=== PATIENT | female | born 1970 | race Hispanic/Latino ===

== ENCOUNTER 2018-01-25 12:56 | Emergency (ER) | payer SELFPAY ==
[2018-01-25] MEDS ORDERED: TORADOL IV ONE (16:23)
[2018-01-25] MEDS ORDERED: NACL 0.9% 1000 ML 1,000 ML IV ONE (16:23)
[2018-01-25] MEDS ORDERED: HALDOL IV ONE (16:25)
--- NOTE | 2018-01-25 17:01 | Emergency Department Report ---
Blank Doc - Documentation Documentation: 47-year-old female with past history of headaches that presents to the ER with progressive onset headache and right upper quadrant pain. Headache was constant , throbbing, left-sided. It has been going on for the past 24 hours. She has taken Aleve, and it hasn't helped. Similar to past headaches, not improving. He right upper quadrant pain is intermittent, pleuritic, worse with food and movement. Symptoms are nonexertional. Started 2 days ago. Similar to past episodes. Patient believes that is related to her gallbladder. On exam, patient has right upper quadrant tenderness with mild right CVA tenderness. Vitals are stable. Patient is well-appearing. Will start lab work and RUQ u/s to evaluate abdominal pain and give patient a headache cocktail for her headache.
[2018-01-25 17:18] LABS: Basophils % (Auto) 0.4 % (0.0-1.8); Eosinophils # (Auto) 0.2 K/mm3 (0.0-0.4); Eosinophils % (Auto) 2.2 % (0.0-4.3); Lymphocytes # (Auto) 2.6 K/mm3 (1.2-5.4); Mean Corpuscular HGB Conc 30 % (30-34); Monocytes # (Auto) 0.3 K/mm3 (0.0-0.8); Platelet Count 307 K/mm3 (140-440); Red Blood Count 4.87 M/mm3 (3.65-5.03)
[2018-01-25 17:20] LABS: Hematocrit 33.2 % (30.3-42.9); Hemoglobin 9.9 gm/dl (10.1-14.3)
[2018-01-25 17:21] LABS: Mean Corpuscular Hemoglobin 20 pg (28-32); Mean Corpuscular Volume 68 fl (79-97); Red Cell Distribution Width 20.6 % (13.2-15.2)
[2018-01-25 17:33] LABS: Alanine Aminotransferase 13 units/L (7-56); Albumin 3.9 g/dL (3.9-5); BUN/Creatinine Ratio 14; Blood Urea Nitrogen 7 mg/dL (7-17); Calcium 9.7 mg/dL (8.4-10.2); Hemolysis Index 5; Lipase 66 units/L (13-60)
[2018-01-25 17:38] LABS: Bilirubin,Direct < 0.2 mg/dL (0-0.2)
[2018-01-25 17:43] LABS: Amorphous Crystals,Urine Few; Bilirubin,Urine NEG (Negative); Blood,Urine SM (Negative); Color,Urine Yellow (Yellow); Mucus,Urine FEW /HPF; Protein,Urine <15 mg/dL mg/dL (Negative); Urobilinogen,Urine < 2.0 mg/dL (<2.0)
[2018-01-25 17:44] LABS: HCG Qualitative,Urine Negative (Negative)
[2018-01-25 17:51] VITALS: BP 160/83
--- NOTE | 2018-01-25 18:59 | Ultrasound Report ---
FINAL REPORT PROCEDURE: Limited abdominal ultrasound. TECHNIQUE: Real-time sonography was performed of the right upper quadrant of the abdomen with image documentation. CPT 77700 HISTORY: Right upper quadrant abdominal pain. COMPARISON: No prior studies are available for comparison. FINDINGS: Image quality is limited by the patient's body habitus and the lack of proper fasting. The pancreas is grossly normal. The tail is incompletely visualized. The proximal aorta has a normal caliber. The liver is suboptimally visualized. The right kidney appears normal in size. There may be mild right hydronephrosis, however this is suboptimally demonstrated. The gallbladder is contracted. There is shadowing from the gallbladder fossa which may indicate gallstones. A repeat study after proper fasting is suggested. The common hepatic duct measures 3.8 millimeters. IMPRESSION: Suboptimal study.
--- NOTE | 2018-01-25 19:36 | Emergency Department Report ---
ED Abdominal Pain HPI - General Chief Complaint: Abdominal Pain Stated Complaint: DIZZINESS ABD PAIN Time Seen by Provider: 01/25/18 15:47 Source: patient Mode of arrival: Ambulatory Limitations: No Limitations - History of Present Illness Initial Comments: 47-year-old female with past history of headaches that presents to the ER with progressive onset headache and right upper quadrant pain. Headache was constant , throbbing, left-sided. It has been going on for the past 24 hours. She has taken Aleve, and it hasn't helped. Similar to past headaches, not improving. Patient says she's had CT scan in the past for headache which did not show any abnormality. He right upper quadrant pain is intermittent, pleuritic, worse with food and movement. Symptoms are nonexertional. Started 2 days ago. Similar to past episodes. Patient believes that is related to her gallbladder. Pain is 8-10 since had an abdomen. Intermittent. throbbing to head. Ports nausea vomiting without diarrhea. Denies any fever or chills. Positive urinary urgency and frequency but no burning. Positive right back pain. Nothing makes pain better and nothing makes it worse and she says she did not take any medication for pain. Pain to abdomen is worse with eating food and movement. Patient also reports nausea. MD Complaint: abdominal pain, other (headache) Onset/Timin -: days(s) Location: RUQ (and headache) Migration to: no migration Severity: severe Severity scale (0 -10): 8 Quality: cramping, other (throbbing headache) Consistency: intermittent Improves With: nothing Worsens With: eating (eating makes abdominal pain worse) Context: other (she thinks abdominal pain is from her gallbladder. She has had headache in the past.) Associated Symptoms: nausea, vomiting, other (urinary urgency and frequency). denies: diarrhea, fever, chills, constipation, dysuria, hematemesis, hematochezia, melena, hematuria, anorexia, syncope Treatments Prior to Arrival: NSAIDs - Related Data LMP Date: 01/11/18 Previous Rx's Medication Instructions Recorded Last Taken Type Oxycodone HCl/Acetaminophen 1 each PO Q6HR PRN #20 tablet 03/30/14 Unknown Rx [Percocet 10-325 mg] Nitrofurantoin Mclean/M-Cryst 100 mg PO Q12HR #14 capsule 01/31/15 Unknown Rx [Macrobid] Phenazopyridine [Pyridium] 200 mg PO TID #9 tablet 01/31/15 Unknown Rx Nitrofurantoin Monohyd/M-Cryst 100 mg PO Q12H 7 Days #14 capsule 01/25/18 Unknown Rx [Macrobid 100 mg Capsule] Ondansetron [Zofran Odt] 4 mg PO Q8H PRN #15 tab.rapdis 01/25/18 Unknown Rx traMADol [Ultram] 50 mg PO Q6HR PRN #12 tablet 01/25/18 Unknown Rx Allergies Allergy/AdvReac Type Severity Reaction Status Date / Time Penicillins AdvReac Unknown Verified 03/29/14 21:25 ED Review of Systems ROS: Stated complaint: DIZZINESS ABD PAIN Other details as noted in HPI Comment: All other systems reviewed and negative Constitutional: no symptoms reported Eyes: denies: eye pain, eye discharge, vision change ENT: denies: throat pain Cardiovascular: denies: chest pain, palpitations, dyspnea on exertion, edema, syncope, paroxysmal nocturnal dyspnea Gastrointestinal: nausea, vomiting. denies: abdominal pain, diarrhea, constipation, hematemesis, melena, hematochezia Genitourinary: urgency, frequency. denies: dysuria, hematuria, discharge, abnormal menses, dyspareunia Musculoskeletal: denies: back pain, joint swelling, arthralgia, myalgia Skin: denies: rash Neurological: headache. denies: weakness, numbness, paresthesias, confusion, abnormal gait, vertigo ED Past Medical Hx - Past Medical History Previous Medical History?: Yes Hx Headaches / Migraines: Yes Additional medical history: GALLSTONES - Surgical History Past Surgical History?: Yes Additional Surgical History: Left knee - Family History Family history: hypertension - Social History Smoking Status: Current Every Day Smoker Substance Use Type: None - Medications Home Medications: Home Medications Medication Instructions Recorded Confirmed Last Taken Type Oxycodone HCl/Acetaminophen 1 each PO Q6HR PRN #20 tablet 03/30/14 Unknown Rx [Percocet 10-325 mg] Nitrofurantoin Mclean/M-Cryst 100 mg PO Q12HR #14 capsule 01/31/15 Unknown Rx [Macrobid] Phenazopyridine [Pyridium] 200 mg PO TID #9 tablet 01/31/15 Unknown Rx Nitrofurantoin Monohyd/M-Cryst 100 mg PO Q12H 7 Days #14 capsule 01/25/18 Unknown Rx [Macrobid 100 mg Capsule] Ondansetron [Zofran Odt] 4 mg PO Q8H PRN #15 tab.rapdis 01/25/18 Unknown Rx traMADol [Ultram] 50 mg PO Q6HR PRN #12 tablet 01/25/18 Unknown Rx ED Physical Exam - General Limitations: No Limitations General appearance: alert, in no apparent distress - Head Head exam: Present: atraumatic, normocephalic, normal inspection, other (normal exam) - Eye Eye exam: Present: normal appearance, PERRL, EOMI. Absent: conjunctival injection, nystagmus, periorbital swelling, periorbital tenderness Pupils: Present: normal accommodation - ENT ENT exam: Present: normal exam, normal orophraynx, mucous membranes moist, TM's normal bilaterally, normal external ear exam - Neck Neck exam: Present: normal inspection, full ROM, other (non-tender to palpate the C-spine). Absent: tenderness, meningismus, lymphadenopathy - Respiratory Respiratory exam: Present: normal lung sounds bilaterally. Absent: respiratory distress, chest wall tenderness - Cardiovascular Cardiovascular Exam: Present: regular rate, normal rhythm, normal heart sounds - GI/Abdominal GI/Abdominal exam: Present: soft, tenderness (mild tenderness to right upper quadrant), normal bowel sounds. Absent: distended, guarding, rebound, rigid, organomegaly, mass, bruit, pulsatile mass, hernia - Extremities Exam Extremities exam: Present: normal inspection, full ROM, normal capillary refill , other (no clubbing, cyanosis or edema. +2 pulses to all extremities and no neurovascular compromise). Absent: tenderness, pedal edema, joint swelling, calf tenderness - Back Exam Back exam: Present: normal inspection, full ROM, other (ambulates without any difficulties). Absent: tenderness, CVA tenderness (R), CVA tenderness (L), muscle spasm, paraspinal tenderness, vertebral tenderness, rash noted - Neurological Exam Neurological exam: Present: alert, oriented X3, normal gait - Expanded Neurological Exam Expanded Neurological exam: Absent: innattentive, memory loss-remote event, memory loss- recent event, ataxia, receptive aphasia, expressive aphasia, total aphasia, tremor, protecting the airway Patient oriented to: Present: person, place, time Speech: Present: fluid speech Cranial nerves: EOM's Intact: Normal, Gag Reflex: Normal, Tongue Deviation: Normal, Nystagmus: Normal, Facial Sensation: Normal Cerebellar function: Romberg: Normal Upper motor neuron: Pronator Drift: Normal, Sensory Extinction: Normal Sensory exam: Upper Extremity Light Touch: Normal, Upper Extremity Temperature: Normal, UE 2 Point Discrimination: Normal, Lower Extremity Light Touch: Normal, Lower Extremity Temperature: Normal, LE 2 Point Discrimination: Normal Motor strength exam: RUE: 5, LUE: 5, RLE: 5, LLE: 5 DTR: bicep (R): 2+, bicep (L): 2+, tricep (R): 2+, tricep (L): 2+, knee (R): 2+ , knee (L): 2+, ankle (R): 2+, ankle (L): 2+ Best Eye Response ([place]): (4) open spontaneously Best Motor Response ([place]): (6) obeys commands Best Verbal Response ([place]): (5) oriented [place] Total: 15 - Psychiatric Psychiatric exam: Present: normal affect, normal mood - Skin Skin exam: Present: warm, dry, intact, normal color. Absent: rash ED Course Vital Signs 01/25/18 01/25/18 01/25/18 13:09 17:10 17:50 Temperature 99.0 F 97.5 F L Pulse Rate 78 77 Respiratory 18 19 Rate Blood Pressure 158/79 Blood Pressure 160/83 [Right] O2 Sat by Pulse 96 96 Oximetry - Reevaluation(s) Reevaluation #1: 01/25/18 20:24 Patient was seen and screened by Dr. Abbott and ordered for Haldol 2.5 mg IV given. Patient also given Toradol 50 mg IV for abdominal pain/headache and normal saline IV bolus for complaints of nausea vomiting. Reevaluation #2: 01/25/18 20:25 Patient is feeling better and tolerating oral liquids well. Abdominal exam is normal. headache has resolved ED Medical Decision Making - Lab Data Result diagrams: 01/25/18 Unknown 01/25/18 Unknown Vital Signs 01/25/18 01/25/18 01/25/18 13:09 17:10 17:50 Temperature 99.0 F 97.5 F L Pulse Rate 78 77 Respiratory 18 19 Rate Blood Pressure 158/79 Blood Pressure 160/83 [Right] O2 Sat by Pulse 96 96 Oximetry - Radiology Data Radiology results: report reviewed Ultrasound of abdomen limited reveals patient with suboptimal study due to body habitus. The pancreas is grossly normal. Detail is incompletely visualized. The proximal aorta has a normal caliber. The liver is suboptimally visualized. The right kidney appears normal in size. There may be mild right hydronephrosis however this is suboptimally demonstrated. The gallbladder is contracted. There shadowing from the gallbladder fossa which may indicate gallstones and patient does have a history of gallstones. Repeated study suggested after proper fasting. - Medical Decision Making ED course: Pt herecomplaining or right upper quadrant abdominal pain with history of gallstones and ultrasound of the abdomen right upper quadrant did reveal patient with suboptimal study due to body habitus. There is suggested and the patient may have gallstone bu not clearly seen. No mention of obstruction. Pancreas is normal. Gallbladder is contracted. Patient was given Toradol 30 mg IV and emergency room 1 L for IV fluid and she is able to tolerate by mouth liquids now and reports that her pain is better. Patient also with elevated lipase at 66 which is minimally elevated and ultrasound suggest that pancreas is grossly normal. Laboratory studies were normal bilirubin and liver enzymes. BUN and creatinine is normal. All chemistry labs are within normal limits except for glucose which is that 102 and lipase is 66 which is slightly elevated. CBC stable and urinalysis shows the patient has acute cystitis with hematuria. Patient with small amount of blood, moderate leukocyte Estrace and 17 white count. Urine is negative. Please refer to laboratory section for details on lab and radiology section for details on radiology. patient WEIR and abdominal pain has resolved. I discussed the patient her diagnosis, treatment plan and need to follow-up after fasting to repeat ultrasound of gallbladder. The ultrasound of gallbladder not able to be visualized effectively and radiologist suggests that she gets this repeated after fasting. Patient is stable and discharged home in stable condition with prescription for Macrobid to cover acute cystitis with hematuria , Ultram for abdominal pain and Zofran for nausea and vomiting. Critical care attestation.: If time is entered above; I have spent that time in minutes in the direct care of this critically ill patient, excluding procedure time. ED Disposition Clinical Impression: Acute cystitis with hematuria, Abnormal ultrasound of abdomen, Nausea and vomiting in adult, Elevated lipase Abdominal pain Qualifiers: Abdominal location: unspecified location Qualified Code(s): R10.9 - Unspecified abdominal pain Acute headache Qualifiers: Headache type: unspecified Intractability: not intractable Qualified Code(s): R51 - Headache Disposition: DC-01 TO HOME OR SELFCARE Is pt being admited?: No Does the pt Need Aspirin: No Condition: Stable Instructions: Abdominal Pain (ED), Acute Headache (ED), Acute Nausea and Vomiting (ED), Biliary Colic (ED) Additional Instructions: Please follow up with network cabler as instructed and discharge instruction paperwork for repeat ultrasound a few right upper quadrant of abdomen to evaluate gallbladder. Radiologist suggests that there is some abnormality but could not see clearly so suggest that you need to be fasting prior to this study. Please take antibiotic for urinary tract infection Take Zofran for nausea. Take Ultram for abdominal pain and headache. Creasey her fluid intake to 2-3 L of water daily. Follow-up E primary care physician in 2 days if he do not have a primary care physician follow-up at [facility]. Prescriptions: Nitrofurantoin Monohyd/M-Cryst [Macrobid 100 mg Capsule] 100 mg PO Q12H 7 Days # 14 capsule Ondansetron [Zofran Odt] 4 mg PO Q8H PRN #15 tab.rapdis PRN Reason: Nausea And Vomiting traMADol [Ultram] 50 mg PO Q6HR PRN #12 tablet PRN Reason: Pain Referrals: PRIMARY CAREMD [Primary Care Provider] - 01/27/18 [facility] [Provider Group] - 01/27/18 [facility] [Outside] - 01/27/18 Forms: Work/School Release Form(ED)
== END 2018-01-25 20:45 | disposition home or self-care (01) ==
LOC: ED 12:56
DX: N30.01 Acute cystitis with hematuria (principal); G43.909 Migraine, unspecified, not intractable, without status migrainosus; F17.200 Nicotine dependence, unspecified, uncomplicated; Z88.0 Allergy status to penicillin
CPT/HCPCS: 36415; 76705; 80048; 80074; 81001; 81025; 83690; 85025; 87086; 96361; 96374; 96375; 99284; J1630; J1885; J7030

== ENCOUNTER 2019-11-27 11:51 | Emergency (ER) | payer SELFPAY ==
[2019-11-27 12:02] VITALS: BP 171/93
--- NOTE | 2019-11-27 12:10 | Emergency Department Report ---
Blank Doc - Documentation Documentation: 48-year-old female that presents with n/v, upper abdominal pain with flank pain and hematuria with dysuria. This initial assessment/diagnostic orders/clinical plan/treatment(s) is/are subject to change based on patient's health status, clinical progression and re- assessment by fellow clinical providers in the ED. Further treatment and workup at subsequent clinical providers discretion. Patient/guardians urged not to elope from the ED as their condition may be serious if not clinically assessed and managed. Initial orders include: 1- Patient sent to [facility] for further evaluation and treatment 2- labs 3- UA
[2019-11-27 12:56] LABS: Basophils % (Auto) 0.2 % (0.0-1.8); Eosinophils # (Auto) 0.2 K/mm3 (0.0-0.4); Eosinophils % (Auto) 2.7 % (0.0-4.3); Hematocrit 46.1 % (30.3-42.9); Hemoglobin 15.8 gm/dl (10.1-14.3); Lymphocytes # (Auto) 1.3 K/mm3 (1.2-5.4); Lymphocytes % (Auto) 21.8 % (13.4-35.0); Mean Corpuscular HGB Conc 34 % (30-34); Mean Corpuscular Volume 92 fl (79-97); Monocytes # (Auto) 0.2 K/mm3 (0.0-0.8); Platelet Count 201 K/mm3 (140-440); Red Blood Count 5.01 M/mm3 (3.65-5.03); Red Cell Distribution Width 14.3 % (13.2-15.2)
[2019-11-27 13:21] LABS: Albumin 3.9 g/dL (3.9-5); BUN/Creatinine Ratio 11; Blood Urea Nitrogen 8 mg/dL (7-17); Calcium 10.7 mg/dL (8.4-10.2); Hemolysis Index 2
[2019-11-27 13:35] LABS: Alanine Aminotransferase 800 units/L (7-56)
[2019-11-27] MEDS ORDERED: KETOROLAC 30 MG/1 ML INJ IV ONE (14:47)
[2019-11-27] MEDS ORDERED: ONDANSETRON 4 MG/2 ML INJ IV ONE (14:47)
[2019-11-27] MEDS ORDERED: SODIUM CHLORIDE 0.9% 1000 ML 1,000 ML IV ONE ×2 (14:47→15:37)
[2019-11-27] MEDS ORDERED: HYDROmorphone 1 MG/1 ML INJ IV ONE (14:47)
--- NOTE | 2019-11-27 14:47 | Emergency Department Report ---
ED Abdominal Pain HPI - General Chief Complaint: Abdominal Pain Stated Complaint: RT SIDE PAIN/VOMIT/KIDNEY PAIN Time Seen by Provider: 11/27/19 12:08 Source: patient Mode of arrival: Ambulatory Limitations: No Limitations - History of Present Illness Initial Comments: Patient is a 48-year-old obese female who comes to the ER complaining of abdominal pain and vomiting. She states she has a history of kidney stones and she has blood in her urine. She also endorses gallstones. Patient is not actively vomiting on exam. Patient is on no home medications. She states she is supposed to be on Flomax but cannot afford it. -: Gradual, days(s) Location: diffuse Consistency: constant Improves With: nothing Worsens With: nothing Associated Symptoms: vomiting - Related Data Previous Rx's Medication Instructions Recorded Last Taken Type Ciprofloxacin HCl [Ciprofloxacin 500 mg PO Q12HR #20 tab 11/27/19 Unknown Rx TAB] Ondansetron [Zofran Odt] 4 mg PO Q8HR PRN #10 tab.rapdis 11/27/19 Unknown Rx Tamsulosin [Flomax] 0.4 mg PO QDAY #30 cap 11/27/19 Unknown Rx traMADoL [Ultram] 50 mg PO Q6HR PRN #10 tablet 11/27/19 Unknown Rx Allergies Allergy/AdvReac Type Severity Reaction Status Date / Time Penicillins AdvReac Unknown Verified 03/29/14 21:25 ED Review of Systems ROS: Stated complaint: RT SIDE PAIN/VOMIT/KIDNEY PAIN Other details as noted in HPI Comment: All other systems reviewed and negative ED Past Medical Hx - Past Medical History Previous Medical History?: Yes Hx Hypertension: No Hx CVA: No Hx Heart Attack/AMI: No Hx Congestive Heart Failure: No Hx Diabetes: No Hx Deep Vein Thrombosis: No Hx Pulmonary Embolism: No Hx GERD: No Hx Liver Disease: No Hx Renal Disease: No Hx of Cancer: No Hx Sickle Cell Disease: No Hx Arthritis: No Hx Headaches / Migraines: Yes Hx Seizures: No Hx Kidney Stones: Yes Hx Psychiatric Treatment: No Hx Asthma: No Hx COPD: No Hx Tuberculosis: No Hx Dementia: No Hx HIV: No Additional medical history: GALLSTONES - Surgical History Past Surgical History?: Yes Additional Surgical History: Left knee, kidney stone removal - Family History Family history: no significant - Social History Smoking Status: Current Every Day Smoker Substance Use Type: Marijuana - Medications Home Medications: Home Medications Medication Instructions Recorded Confirmed Last Taken Type Ciprofloxacin HCl [Ciprofloxacin 500 mg PO Q12HR #20 tab 11/27/19 Unknown Rx TAB] Ondansetron [Zofran Odt] 4 mg PO Q8HR PRN #10 tab.rapdis 11/27/19 Unknown Rx Tamsulosin [Flomax] 0.4 mg PO QDAY #30 cap 11/27/19 Unknown Rx traMADoL [Ultram] 50 mg PO Q6HR PRN #10 tablet 11/27/19 Unknown Rx ED Physical Exam - General Limitations: No Limitations General appearance: alert, in no apparent distress - Head Head exam: Present: atraumatic, normocephalic - Eye Eye exam: Present: normal appearance - ENT ENT exam: Present: mucous membranes moist - Neck Neck exam: Present: normal inspection - Respiratory Respiratory exam: Present: normal lung sounds bilaterally. Absent: respiratory distress - Cardiovascular Cardiovascular Exam: Present: regular rate, normal rhythm. Absent: systolic murmur, diastolic murmur, rubs, gallop - GI/Abdominal GI/Abdominal exam: Present: soft, tenderness, normal bowel sounds - Extremities Exam Extremities exam: Present: normal inspection - Back Exam Back exam: Present: normal inspection - Neurological Exam Neurological exam: Present: alert, oriented X3 - Psychiatric Psychiatric exam: Present: normal affect, normal mood - Skin Skin exam: Present: warm, dry, intact, normal color. Absent: rash ED Course Vital Signs 11/27/19 11/27/19 11/27/19 12:01 15:06 15:10 Temperature 97.9 F Pulse Rate 84 Respiratory 20 18 18 Rate Blood Pressure 171/93 [Right] O2 Sat by Pulse 95 Oximetry 11/27/19 11/27/19 15:36 15:40 Temperature Pulse Rate Respiratory 18 18 Rate Blood Pressure [Right] O2 Sat by Pulse Oximetry - Reevaluation(s) Reevaluation #1: 11/27/19 18:18 PT ANGRY ON DC THAT WE ARE NOT ADMITTING HER. DIMITRIOS EXPLAINED TO HER WHY AND GIVEN HER ALL REFERRALS AND RX ED Medical Decision Making - Lab Data Result diagrams: 11/27/19 12:12 11/27/19 12:12 - Radiology Data Radiology results: report reviewed, image reviewed K STONE; MILD HYDRO - Medical Decision Making Vital Signs 11/27/19 11/27/1911/26/20 12:01 15:06 15:10 Temperature 97.9 F Pulse Rate 84 Respiratory 20 18 18 Rate Blood Pressure 171/93 [Right] O2 Sat by Pulse 95 Oximetry Lab Results 11/27/19 11/27/19 11/27/19 Range/Units 12:12 12:12 12:12 WBC 6.1 (4.5-11.0) K/mm3 RBC 5.01 (3.65-5.03) M/mm3 Hgb 15.8 H (10.1-14.3) gm/dl Hct 46.1 H (30.3-42.9) % MCV 92 (79-97) fl MCH 32 (28-32) pg MCHC 34 (30-34) % RDW 14.3 (13.2-15.2) % Plt Count 201 (140-440) K/mm3 Lymph % (Auto) 21.8 (13.4-35.0) % [place] % (Auto) 3.0 (0.0-7.3) % Eos % (Auto) 2.7 (0.0-4.3) % Baso % (Auto) 0.2 (0.0-1.8) % Lymph # 1.3 (1.2-5.4) K/mm3 [place] # 0.2 (0.0-0.8) K/mm3 Eos # 0.2 (0.0-0.4) K/mm3 Baso # 0.0 (0.0-0.1) K/mm3 Seg Neutrophils % 72.3 H (40.0-70.0) % Seg Neutrophils # 4.4 (1.8-7.7) K/mm3 Sodium 144 (137-145) mmol/L Potassium 3.6 (3.6-5.0) mmol/L Chloride 106.6 (98-107) mmol/L Carbon Dioxide 21 L (22-30) mmol/L Anion Gap 20 mmol/L BUN 8 (7-17) mg/dL Creatinine 0.7 (0.7-1.2) mg/dL Estimated GFR > 60 ml/min BUN/Creatinine Ratio 11 % Glucose 136 H (65-100) mg/dL Calcium 10.7 H (8.4-10.2) mg/dL Total Bilirubin 0.90 (0.1-1.2) mg/dL AST 445 H (5-40) units/L ALT 800 H (7-56) units/L Alkaline Phosphatase 189 H (35-129) units/L Total Protein 7.4 (6.3-8.2) g/dL Albumin 3.9 (3.9-5) g/dL Albumin/Globulin Ratio 1.1 % Lipase 23 (13-60) units/L HCG, Qual Negative (Negative) Urine Color (Yellow) Urine Turbidity (Clear) Urine pH (5.0-7.0) Ur Specific [place] (1.003-1.030) Urine Protein (Negative) mg/dL Urine Glucose (UA) (Negative) mg/dL Urine Ketones (Negative) mg/dL Urine Blood (Negative) Urine Nitrite (Negative) Urine Bilirubin (Negative) Urine Urobilinogen (<2.0) mg/dL Ur Leukocyte Esterase (Negative) Urine WBC (Auto) (0.0-6.0) /HPF Urine RBC (Auto) (0.0-6.0) /HPF U Epithel Cells (Auto) (0-13.0) /HPF Urine Bacteria (Auto) (Negative) /HPF Urine Mucus /HPF /12/13 Range/Units 14:55 WBC (4.5-11.0) K/mm3 RBC (3.65-5.03) M/mm3 Hgb (10.1-14.3) gm/dl Hct (30.3-42.9) % MCV (79-97) fl MCH (28-32) pg MCHC (30-34) % RDW (13.2-15.2) % Plt Count (140-440) K/mm3 Lymph % (Auto) (13.4-35.0) % [place] % (Auto) (0.0-7.3) % Eos % (Auto) (0.0-4.3) % Baso % (Auto) (0.0-1.8) % Lymph # (1.2-5.4) K/mm3 [place] # (0.0-0.8) K/mm3 Eos # (0.0-0.4) K/mm3 Baso # (0.0-0.1) K/mm3 Seg Neutrophils % (40.0-70.0) % Seg Neutrophils # (1.8-7.7) K/mm3 Sodium (137-145) mmol/L Potassium (3.6-5.0) mmol/L Chloride (98-107) mmol/L Carbon Dioxide (22-30) mmol/L Anion Gap mmol/L BUN (7-17) mg/dL Creatinine (0.7-1.2) mg/dL Estimated GFR ml/min BUN/Creatinine Ratio % Glucose (65-100) mg/dL Calcium (8.4-10.2) mg/dL Total Bilirubin (0.1-1.2) mg/dL AST (5-40) units/L ALT (7-56) units/L Alkaline Phosphatase (35-129) units/L Total Protein (6.3-8.2) g/dL Albumin (3.9-5) g/dL Albumin/Globulin Ratio % Lipase (13-60) units/L HCG, Qual (Negative) Urine Color [place] (Yellow) Urine Turbidity Slightly-cloudy (Clear) Urine pH 6.0 (5.0-7.0) Ur Specific [place] 1.019 (1.003-1.030) Urine Protein <15 mg/dl (Negative) mg/dL Urine Glucose (UA) Neg (Negative) mg/dL Urine Ketones Neg (Negative) mg/dL Urine Blood Mod (Negative) Urine Nitrite Neg (Negative) Urine Bilirubin Neg (Negative) Urine Urobilinogen 4.0 (<2.0) mg/dL Ur Leukocyte Esterase Lg (Negative) Urine WBC (Auto) 11.0 H (0.0-6.0) /HPF Urine RBC (Auto) 27.0 (0.0-6.0) /HPF U Epithel Cells (Auto) 11.0 (0-13.0) /HPF Urine Bacteria (Auto) 1+ (Negative) /HPF Urine Mucus Few /HPF Labs noted. UA noted CT scan noted 2 L of normal saline, Rocephin, Zofran and pain medicine given in the ER. Patient has acute on chronic kidney stones. She does not have elevated creatinine or leukocytosis. She does not have an obstructing stone. Patient stable for discharge. Patient being discharged with GI, kidney and PCP follow-up. She will go on Zofran, pain medications and antibiotics. Patient has been instructed to follow-up with GI regarding her liver enzymes. - Differential Diagnosis Rule out kidney stone/gallstone Critical care attestation.: If time is entered above; I have spent that time in minutes in the direct care of this critically ill patient, excluding procedure time. ED Disposition Clinical Impression: Kidney stones, Transaminitis, Fatty liver, UTI (urinary tract infection) Disposition: TO HOME OR SELFCARE Is pt being admited?: No Does the pt Need Aspirin: No Condition: Stable Instructions: Kidney Stones (ED), Non-Alcoholic Fatty Liver Disease (ED) Additional Instructions: MEDS ORDERED AVOID TYLENOL UNTIL LIVER IMPROVES- THIS INCLUDES NORCO/OXY AVOID ALCOHOL AND STATIN MEDICATIONS STAY WELL HYDRATED MEDS ORDERED TODAY FOLLOW UP WITH GI/ NEPHROLOGY AND PCP FOR ONGOING CARE REFERRAL BELOW Prescriptions: Ciprofloxacin HCl [Ciprofloxacin TAB] 500 mg PO Q12HR #20 tab Tamsulosin [Flomax] 0.4 mg PO QDAY #30 cap traMADoL [Ultram] 50 mg PO Q6HR PRN #10 tablet PRN Reason: Pain Ondansetron [Zofran Odt] 4 mg PO Q8HR PRN #10 tab.rapdis PRN Reason: Vomiting Referrals: NOHEMI COCHRAN MD [Staff Physician] - 3-5 Days CONSTANTINO RICHARDS MD [Staff Physician] - 3-5 Days RONNI GUADARRAMA MD [Staff Physician] - 3-5 Days Time of Disposition: 14:47
--- NOTE | 2019-11-27 15:23 | Cat Scan Report ---
CT ABDOMEN AND PELVIS WITHOUT CONTRAST HISTORY: Right flank and abdominal pain. COMPARISON: None TECHNIQUE: Routine abdominal and pelvic CT exam performed without contrast. Lack of intravenous cont rast limits evaluation of the vascular and solid organs.. All CT scans at this location are performed using CT dose reduction for ALARA by means of automated exposure control. FINDINGS: CT ABDOMEN: Lung Bases: Clear. Liver: The liver is enlarged and diffusely hypodense. The right lobe measures 22 cm in length and the liver measures 23 Hounsfield units in density compared to 22 Hounsfield units for the spleen. No tamy er mass. Biliary: The gallbladder contains multiple calculi and the largest measures 2 cm. Normal gallbladder wall thickness and no pericholecystic fluid. The intrahepatic and extra hepatic bile ducts are normal . Spleen: No significant abnormality. Unenlarged. Pancreas: No significant abnormality. Adrenals: No significant abnormality. Kidneys: Several bilateral nonobstructive renal calculi. The largest is in the lower pole of the left kidney and measures 4 mm. A cluster of nonobstructive right lower pole calculi with the largest antione uring 3 mm. The right renal collecting system is mildly dilated. The right ureter is nondilated but t here appears to be a calculus in the distal right ureter several centimeters proximal to the UVJ. The calculus measures 5 mm. No periureteral stranding or perinephric stranding. The left renal collectin g system and ureter are nondilated. Lymphatics: No lymphadenopathy. Vasculature: No significant abnormality. Bowel/Peritoneum: No significant abnormality. No free air. No free fluid. Appendix not visualized. No pericecal inflammation. CT PELVIC: : Normal uterus and ovaries. A 2.4 cm dominant follicle of the right ovary. No adnexal mass or free fluid. Lymphatics: No lymphadenopathy. Osseous Structures: No aggressive appearing osseous lesions. Additional Findings: None IMPRESSION: 1. A 5 mm calculus in the distal one third of the right ureter. Very mild right hydronephrosis and no hydroureter. 2. Several bilateral nonobstructive renal calculi. 3. Cholelithiasis but no signs of acute cholecystitis. 4. Hepatomegaly and changes in the liver consistent with hepatic steatosis. Signer Name: Kristopher Cornejo MD Signed: 11/27/2019 3:18 PM Workstation Name: [id number]
[2019-11-27 15:26] LABS: Bacteria,Urine 1+ /HPF (Negative); Bilirubin,Urine NEG (Negative); Blood,Urine MOD (Negative); Color,Urine Amber (Yellow); Mucus,Urine FEW /HPF; Protein,Urine <15 mg/dL mg/dL (Negative)
[2019-11-27] MEDS ORDERED: TAMSULOSIN 0.4 MG CAP PO ONE (15:29)
[2019-11-27] MEDS ORDERED: cefTRIAXone/NS 1 GM/50 ML 1 GM/50 ML BAG IV ONE (15:31)
== END 2019-11-27 15:39 | disposition home or self-care (01) ==
LOC: ED 11:51
DX: N20.0 Calculus of kidney (principal); N39.0 Urinary tract infection, site not specified; K76.0 Fatty (change of) liver, not elsewhere classified; R74.0 Nonspecific elevation of levels of transaminase and lactic acid dehydrogenase [LDH]; G43.909 Migraine, unspecified, not intractable, without status migrainosus; F17.200 Nicotine dependence, unspecified, uncomplicated; F12.90 Cannabis use, unspecified, uncomplicated; Z88.0 Allergy status to penicillin; Z79.899 Other long term (current) drug therapy
CPT/HCPCS: 36415; 74176; 80053; 81001; 83690; 84703; 85025; 87086; 96361; 96365; 96366; 96375; 99284; J0696; J1170; J1885; J2405; J7030

== ENCOUNTER 2019-12-05 04:16 | Emergency (ER) | payer SELFPAY ==
[2019-12-05 05:21] LABS: Basophils % (Auto) 0.3 % (0.0-1.8); Eosinophils # (Auto) 0.1 K/mm3 (0.0-0.4); Eosinophils % (Auto) 1.5 % (0.0-4.3); Hemoglobin 15.8 gm/dl (10.1-14.3); Lymphocytes # (Auto) 1.7 K/mm3 (1.2-5.4); Mean Corpuscular HGB Conc 34 % (30-34); Mean Corpuscular Volume 93 fl (79-97); Monocytes # (Auto) 0.4 K/mm3 (0.0-0.8); Monocytes % (Auto) 4.5 % (0.0-7.3); Platelet Count 203 K/mm3 (140-440); Red Blood Count 4.95 M/mm3 (3.65-5.03); Red Cell Distribution Width 14.8 % (13.2-15.2)
[2019-12-05 05:26] LABS: Bilirubin,Urine NEG (Negative); Blood,Urine MOD (Negative); Calcium Oxalate Crystals,Urine 3+; Color,Urine Yellow (Yellow); Hyaline Casts,Urine 1 /LPF; Mucus,Urine FEW /HPF; Protein,Urine <15 mg/dL mg/dL (Negative); Urobilinogen,Urine < 2.0 mg/dL (<2.0)
[2019-12-05 05:36] LABS: Alanine Aminotransferase 78 units/L (7-56); Albumin 4.1 g/dL (3.9-5); BUN/Creatinine Ratio 16; Blood Urea Nitrogen 13 mg/dL (7-17); Calcium 11.1 mg/dL (8.4-10.2); Hemolysis Index 7
[2019-12-05] MEDS ORDERED: KETOROLAC 30 MG/1 ML INJ IV ONE (07:49)
[2019-12-05] MEDS ORDERED: ONDANSETRON 4 MG/2 ML INJ IV ONE (07:49)
--- NOTE | 2019-12-05 07:59 | Emergency Department Report ---
ED Abdominal Pain HPI - General Chief Complaint: Abdominal Pain Stated Complaint: FLANK PAIN KIDNEY PAIN Time Seen by Provider: 12/05/19 07:32 Source: patient Mode of arrival: Ambulatory Limitations: No Limitations - History of Present Illness Initial Comments: This pleasant 48-year-old female presents the emergency department chief complaint of right flank pain that radiates to the right lower quadrant. Patient was seen in the ER 8 days ago with similar symptoms and had a CAT scan diagnosed with a 5 mm ureteral stone on the right. Patient reports she was given Flomax, pain medication and Cipro and initially her pain improved however states since last night her pain is significantly worsened. She now reports 10 out of 10 pain starts in the right flank and radiates around to the right lower quadrant of her abdomen. She reports frequent urination and urgency. She denies any associated fever, chills, night sweats, headache, dizziness, blurry vision. She does report associated nausea and one episode of nonbloody nonbilious vomiting. She also reports associated nonbloody diarrhea. She reports a history of frequent kidney stones and has had multiple surgeries by her urologist however she lost her insurance and has been unable to follow-up since. MD Complaint: abdominal pain - Related Data Previous Rx's Medication Instructions Recorded Last Taken Type Ciprofloxacin HCl [Ciprofloxacin 500 mg PO Q12HR #20 tab 11/27/19 Unknown Rx TAB] Ondansetron [Zofran Odt] 4 mg PO Q8HR PRN #10 tab.rapdis 11/27/19 Unknown Rx Tamsulosin [Flomax] 0.4 mg PO QDAY #30 cap 11/27/19 Unknown Rx traMADoL [Ultram] 50 mg PO Q6HR PRN #10 tablet 11/27/19 Unknown Rx Acetaminophen with Codeine 1 each PO Q6HR PRN #12 tablet 12/05/19 Unknown Rx [Acetaminophen-Codeine #4 TAB] Ibuprofen [Motrin 800 MG tab] 800 mg PO Q8HR 10 Days #30 tablet 12/05/19 Unknown Rx Allergies Allergy/AdvReac Type Severity Reaction Status Date / Time Penicillins AdvReac Unknown Verified 03/29/14 21:25 ED Review of Systems ROS: Stated complaint: FLANK PAIN KIDNEY PAIN Other details as noted in HPI Comment: All other systems reviewed and negative Constitutional: denies: chills, fever Eyes: denies: eye pain, eye discharge, vision change ENT: denies: ear pain, throat pain Respiratory: denies: cough, shortness of breath, wheezing Cardiovascular: denies: chest pain, palpitations Endocrine: no symptoms reported Gastrointestinal: as per HPI, abdominal pain, nausea, vomiting. denies: diarrhea Genitourinary: denies: urgency, dysuria, discharge Musculoskeletal: denies: back pain, joint swelling, arthralgia Skin: denies: rash, lesions Neurological: denies: headache, weakness, paresthesias Psychiatric: denies: anxiety, depression Hematological/Lymphatic: denies: easy bleeding, easy bruising ED Past Medical Hx - Past Medical History Previous Medical History?: Yes Hx Hypertension: No Hx CVA: No Hx Heart Attack/AMI: No Hx Congestive Heart Failure: No Hx Diabetes: No Hx Deep Vein Thrombosis: No Hx Pulmonary Embolism: No Hx GERD: No Hx Liver Disease: No Hx Renal Disease: No Hx Sickle Cell Disease: No Hx Arthritis: No Hx Headaches / Migraines: Yes Hx Seizures: No Hx Kidney Stones: Yes Hx Psychiatric Treatment: No Hx Asthma: No Hx COPD: No Hx Tuberculosis: No Hx Dementia: No Hx HIV: No Additional medical history: GALLSTONES - Surgical History Past Surgical History?: Yes Additional Surgical History: Left knee, kidney stone removal - Social History Smoking Status: Current Every Day Smoker - Medications Home Medications: Home Medications Medication Instructions Recorded Confirmed Last Taken Type Ciprofloxacin HCl [Ciprofloxacin 500 mg PO Q12HR #20 tab 11/27/19 Unknown Rx TAB] Ondansetron [Zofran Odt] 4 mg PO Q8HR PRN #10 tab.rapdis 11/27/19 Unknown Rx Tamsulosin [Flomax] 0.4 mg PO QDAY #30 cap 11/27/19 Unknown Rx traMADoL [Ultram] 50 mg PO Q6HR PRN #10 tablet 11/27/19 Unknown Rx Acetaminophen with Codeine 1 each PO Q6HR PRN #12 tablet 12/05/19 Unknown Rx [Acetaminophen-Codeine #4 TAB] Ibuprofen [Motrin 800 MG tab] 800 mg PO Q8HR 10 Days #30 tablet 12/05/19 Unknown Rx ED Physical Exam - General Limitations: No Limitations General appearance: alert, in no apparent distress - Head Head exam: Present: atraumatic, normocephalic - Eye Eye exam: Present: normal appearance, PERRL, EOMI Pupils: Present: normal accommodation - ENT ENT exam: Present: normal exam, mucous membranes moist. Absent: normal bull phraynx, mucous membranes dry - Neck Neck exam: Present: normal inspection, full ROM. Absent: tenderness, meningismus - Respiratory Respiratory exam: Present: normal lung sounds bilaterally. Absent: respiratory distress, wheezes, rales, rhonchi, stridor - Cardiovascular Cardiovascular Exam: Present: regular rate, normal rhythm, normal heart sounds. Absent: systolic murmur, diastolic murmur, rubs, gallop - GI/Abdominal GI/Abdominal exam: Present: soft, tenderness (Tenderness to the right lower quadrant, no rebound or guarding. Negative Pate sign.), normal bowel sounds. Absent: distended, guarding, rebound, rigid - Extremities Exam Extremities exam: Present: normal inspection, full ROM, normal capillary refill. Absent: tenderness - Back Exam Back exam: Present: normal inspection, full ROM, CVA tenderness (R). Absent: tenderness, CVA tenderness (L), muscle spasm, paraspinal tenderness, vertebral tenderness - Neurological Exam Neurological exam: Present: alert, oriented X3 - Psychiatric Psychiatric exam: Present: normal affect, normal mood - Skin Skin exam: Present: warm, dry, intact, normal color. Absent: rash ED Course Vital Signs 12/05/19 04:26 Temperature 98.6 F Pulse Rate 89 Respiratory 18 Rate Blood Pressure 147/103 O2 Sat by Pulse 97 Oximetry ED Medical Decision Making - Lab Data Result diagrams: 12/05/19 05:02 12/05/19 05:02 Lab Results 12/05/19 12/05/19 12/05/19 Range/Units 05:02 05:02 05:03 WBC 9.7 (4.5-11.0) K/mm3 RBC 4.95 (3.65-5.03) M/mm3 Hgb 15.8 H (10.1-14.3) gm/dl Hct 46.0 H (30.3-42.9) % MCV 93 (79-97) fl MCH 32 (28-32) pg MCHC 34 (30-34) % RDW 14.8 (13.2-15.2) % Plt Count 203 (140-440) K/mm3 Lymph % (Auto) 17.0 (13.4-35.0) % [place] % (Auto) 4.5 (0.0-7.3) % Eos % (Auto) 1.5 (0.0-4.3) % Baso % (Auto) 0.3 (0.0-1.8) % Lymph # 1.7 (1.2-5.4) K/mm3 [place] # 0.4 (0.0-0.8) K/mm3 Eos # 0.1 (0.0-0.4) K/mm3 Baso # 0.0 (0.0-0.1) K/mm3 Seg Neutrophils % 76.7 H (40.0-70.0) % Seg Neutrophils # 7.5 (1.8-7.7) K/mm3 Sodium 140 (137-145) mmol/L Potassium 4.1 (3.6-5.0) mmol/L Chloride 104.8 (98-107) mmol/L Carbon Dioxide 22 (22-30) mmol/L Anion Gap 17 mmol/L BUN 13 (7-17) mg/dL Creatinine 0.8 (0.7-1.2) mg/dL Estimated GFR > 60 ml/min BUN/Creatinine Ratio 16 % Glucose 132 H (65-100) mg/dL Calcium 11.1 H (8.4-10.2) mg/dL Total Bilirubin 0.20 (0.1-1.2) mg/dL AST 24 (5-40) units/L ALT 78 H (7-56) units/L Alkaline Phosphatase 149 H (35-129) units/L Total Protein 7.4 (6.3-8.2) g/dL Albumin 4.1 (3.9-5) g/dL Albumin/Globulin Ratio 1.2 % Urine Color Yellow (Yellow) Urine Turbidity Slightly-cloudy (Clear) Urine pH 5.0 (5.0-7.0) Ur Specific [place] 1.013 (1.003-1.030) Urine Protein <15 mg/dl (Negative) mg/dL Urine Glucose (UA) Neg (Negative) mg/dL Urine Ketones Neg (Negative) mg/dL Urine Blood Mod (Negative) Urine Nitrite Neg (Negative) Urine Bilirubin Neg (Negative) Urine Urobilinogen < 2.0 (<2.0) mg/dL Ur Leukocyte Esterase Tr (Negative) Urine WBC (Auto) 8.0 H (0.0-6.0) /HPF Urine RBC (Auto) 21.0 (0.0-6.0) /HPF U Epithel Cells (Auto) 3.0 (0-13.0) /HPF Calcium Oxalate Crystal 3+ Hyaline Casts 1 /LPF Urine Mucus Few /HPF - Radiology Data Radiology results: report reviewed Cat Scan Report Signed Patient: DORITA LÓPEZ MR#: [id number] : 1970 Acct:[id number] Age/Sex: 48 / F ADM Date: 12/05/19 Loc: ED Attending Dr: Ordering Physician: RUDY BARRETO Date of Service: 12/05/19 Procedure(s): CT abdomen pelvis wo con Accession Number(s): [id number] cc: RUDY BARRETO CT abdomen pelvis wo con INDICATION: R flank, RLQ abdominal pain. TECHNIQUE: All CT scans at this location are performed using the following dose modulation technique: Automated exposure control. Helical slices were obtained through the abdomen and pelvis. No contrast is administered. COMPARISON: CT scan dated 11/27/2019 no acute abnormality is seen in the lower chest. Is fatty infiltration of the liver. There is cholelithiasis. Findings: Spleen, pancreas, adrenal glands, and small bowel show no acute abnormality. There is moderate to severe right hydronephrosis. There is nephrolithiasis bilaterally. Right ureteral calculi are noted. There appear to be 2 stones in the ureter maximum diameter by my measurements is approximately 7 x 5 mm. The stones together measure approximately 1.7 cm in length. Pelvis: There is no obstruction or inflammation. There are no abnormal fluid collections. Phleboliths are noted. On review of bone windows, no acute osseous abnormalities are seen. IMPRESSION: There is moderate to severe right hydroureteronephrosis. Ureteral stones noted on the prior study are unchanged in position. There is cholelithiasis. Signer Name: Naeem Mathew MD Signed: 12/05/2019 10:14 AM Workstation Name: [id number] Transcribed By: Dictated By: Naeem Mathew MD Electronically Authenticated By: Naeem Mathew MD Signed Date/Time: 12/05/19 1014 - Medical Decision Making Patient presented the emergency department with right flank rating to the right lower quadrant. She has a known 5 mm stone in the right ureter. Scan to the redemonstrates the stone with very little movement. Unfortunately patient has been unable to follow-up with urology due to financial reasons and lack of insurance. I consulted case management who came and spoke to the patient and gave resources. I did refer the patient to our medical clinic as well as our urologist. Patient's pain was controlled in the emergency department. Her urine did show a few white blood cells however on comparison to the previous results from her previous visit this had improved and the previous urine culture was negative for bacteria and positive for normal urogenital jaydon. The patient does have gallstones however on both CT scans there is no evidence of acute cholecystitis. Clinically the patient has no right upper quadrant tenderness to palpation and a negative Pate sign making acute cholecystitis less likely. On her last visit the patient's liver function studies were significantly elevated however they have improved significantly today. Her bilirubin was normal further supporting this is not cholecystitis, cholelithiasis or choledocholithiasis causing her pain today. I will treat her pain with Tylenol 3 and anti-inflammatories and recommend she follow-up with urology soon as possible. She is instructed to return with any fever, chills intractable vomiting or any other changing or worsening symptoms. Discussed with attending who agrees with plan. Patient verbalized understanding the diagnosis, treatment plan and follow-up instructions and all of her questions were answered. - Differential Diagnosis nephrolithiasis, pyelonephritis, cholelithiasis Critical care attestation.: If time is entered above; I have spent that time in minutes in the direct care of this critically ill patient, excluding procedure time. ED Disposition Clinical Impression: Ureteral colic Disposition: - TO HOME OR SELFCARE Is pt being admited?: No Condition: Stable Instructions: Renal Colic (ED) Prescriptions: Acetaminophen with Codeine [Acetaminophen-Codeine #4 TAB] 1 each PO Q6HR PRN #12 tablet PRN Reason: Pain , Severe (7-10) Ibuprofen [Motrin 800 MG tab] 800 mg PO Q8HR 10 Days #30 tablet Referrals: PRIMARY CAREMD [Primary Care Provider] - 3-5 Days RUBENS HUMPHRIES MD [Staff Physician] - 3-5 Days Time of Disposition: 10:46
--- NOTE | 2019-12-05 10:19 | Cat Scan Report ---
CT abdomen pelvis wo con INDICATION: R flank, RLQ abdominal pain. TECHNIQUE: All CT scans at this location are performed using the following dose modulation technique: Automated exposure control. Helical slices were obtained through the abdomen and pelvis. No contrast is adminis tered. COMPARISON: CT scan dated 11/27/2019 no acute abnormality is seen in the lower chest. Is fatty infiltration of the liver. There is cholelithiasis. Findings: Spleen, pancreas, adrenal glands, and small bowel show no acute abnormality. There is moderate to severe right hydronephrosis. There is nephrolithiasis bilaterally. Right uretera l calculi are noted. There appear to be 2 stones in the ureter maximum diameter by my measurements is approximately 7 x 5 mm. The stones together measure approximately 1.7 cm in length. Pelvis: There is no obstruction or inflammation. There are no abnormal fluid collections. Phleboliths are noted. On review of bone windows, no acute osseous abnormalities are seen. IMPRESSION: There is moderate to severe right hydroureteronephrosis. Ureteral stones noted on the prior study are unchanged in position. There is cholelithiasis. Signer Name: Naeem Mathew MD Signed: 12/05/2019 10:14 AM Workstation Name: [id number]
[2019-12-05] MEDS ORDERED: MORPHINE 4 MG/1 ML INJ IV ONE (10:41)
[2019-12-05 11:03] VITALS: BP 137/79
== END 2019-12-05 11:25 | disposition home or self-care (01) ==
LOC: ED 04:16
DX: N23 Unspecified renal colic (principal); G43.909 Migraine, unspecified, not intractable, without status migrainosus; F17.200 Nicotine dependence, unspecified, uncomplicated; Z79.899 Other long term (current) drug therapy; Z88.0 Allergy status to penicillin; Z98.890 Other specified postprocedural states; Z87.442 Personal history of urinary calculi
CPT/HCPCS: 36415; 74176; 80053; 81001; 85025; 96374; 96375; 99284; J1885; J2270; J2405